=== PATIENT | male | born 1965 | race Caucasian/White ===

== ENCOUNTER 2024-05-31 08:44 | Emergency (ER) | payer OTHER ==
[~2024-05-31] VITALS: Ht 185.4 cm; Wt 85.7 kg
[~2024-05-31 08:44] MED LIST: NAPROSYN500 MG PO
[2024-05-31 10:25] VITALS: BP 143/80
== END 2024-05-31 10:25 | disposition home or self-care (01) ==
LOC: ED 08:44
DX: M25.511 Pain in right shoulder (principal); Z88.2 Allergy status to sulfonamides
CPT/HCPCS: 73030; 99283